=== PATIENT | male | born 1960 | race African-American/Black ===

== ENCOUNTER 2020-09-26 10:49 | Emergency (ER) | payer BC, SELFPAY ==
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
[2020-09-26 10:50] VITALS: PULSE 97; RESP 14; TEMP 36.8; O2SAT 95
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
[2020-09-26 11:40] VITALS: BP 160/109; PULSE 76; O2SAT 98
[2020-09-26] MEDS: CYCLOBENZAPRINE HCL 10 MG TABLET PO (11:59)
[2020-09-26] MEDS: IBUPROFEN 400 MG TABLET 800 MG PO (11:59)
[2020-09-26] MEDS: amLODIPine BESYLATE 5 MG TABLET PO (12:09)
[2020-09-26 13:01] VITALS: BP 149/99; PULSE 67
== END 2020-09-26 13:01 | disposition home or self-care (01) ==
PROVIDERS: Emergency Provider General Practice
DX: S16.1XXA Strain of muscle, fascia and tendon at neck level, initial encounter (principal); S39.012A Strain of muscle, fascia and tendon of lower back, initial encounter; I10 Essential (primary) hypertension; E11.9 Type 2 diabetes mellitus without complications; V69.40XA Driver of heavy transport vehicle injured in collision with unspecified motor vehicles in traffic accident, initial encounter
CPT/HCPCS: 72100; 72125; 99284; A9270